=== PATIENT | female | born 1950 | race Caucasian/White ===

== ENCOUNTER 2016-07-16 10:52 | Emergency (ER) | payer MEDICARE, BC ==
--- NOTE | 2016-07-16 11:09 | Emergency Department Record ---
History of Present Illness - General Chief Complaint: Back Pain/Injury Stated Complaint: SCIATIC PAIN Time Seen by Provider: 07/16/16 11:08 Source: Patient Mode of Arrival: Ambulatory Limitations: No limitations - History of Present Illness Initial Comments: The patient is here due to a worsening of her chronic back pain. She has had a long hx of similar problems and did have injections done over a year ago which improved the pain. Now for the last 2 months the pain has returned and is worsening. The pain is in the L buttock area and intermittently radiates down the L leg. She denies any leg weakness or numbness and also denies any bowel or bladder incontinence or retention. The patient has been receiving Lancaster for pain but it is not working. She does have an MRI scheduled tomorrow for the problem. The patient did not take any of her multiple BP medicines today also. MD Complaint: Back pain Onset/Timin -: Month(s) Similar Symptoms Previously: Yes Radiation: Left leg Severity: Severe Severity scale (1-10): 10 Quality: Sharp Consistency: Getting worse Improves With: None Worsens With: None Context: Other Associated Symptoms: Denies other symptoms Treatments Prior to Arrival: Acetaminophen Treatment Prior to Arrival Comment:: Tylenol at 0800 - Related Data Home Medications Medication Instructions Recorded Confirmed Last Taken Clonidine HCl [Catapres] 1 tab PO DAILY PRN 05/27/14 07/16/16 07/16/16 Lisinopril/Hydrochlorothiazide 1 tab PO DAILY 05/27/14 07/16/16 07/16/16 [Lisinopril-Hctz 20-12.5 mg Tab] Ondansetron [Ondansetron Odt] 1 tab PO QID PRN 05/27/14 07/16/16 07/16/16 Propranolol HCl [Propranolol HCl 120 mg PO DAILY 05/27/14 07/16/16 07/16/16 ER] Hydrocodone/Acetaminophen 1 tab PO Q12HR PRN 07/16/16 07/16/16 07/15/16 [Hydrocodon-Acetaminophen 5-325] Previous Rx's Medication Instructions Recorded Naproxen [Naprosyn] 500 mg PO Q12H #30 tab. 07/04/15 Acyclovir 800 mg PO 5XD #34 tablet 09/10/15 Lorazepam [Ativan] 0.5 mg PO TID #14 tablet 11/15/15 Trazodone HCl [Desyrel] 50 mg PO QHS #30 tab 11/19/15 Methylprednisolone [Medrol Dose 4 mg PO DAILY #1 tab.ds.pk 07/16/16 Pack] Allergies Allergy/AdvReac Type Severity Reaction Status Date / Time iodine Allergy Severe SWELLING Verified 07/16/16 10:58 OF THE TONGUE nalbuphine HCl [From Nubain] Allergy Severe SWELLING Verified 07/16/16 10:58 OF THE TONGUE seafood Allergy Severe SWELLING Uncoded 08/30/14 13:47 OF THE TONGUE Travel Screening - Travel/Exposure Within Last 30 Days Have you traveled within the last 30 days?: No - Travel/Exposure Within Last Year Have you traveled outside the [place] in the last year?: No - Additonal Travel Details Have you been exposed to anyone with a communicable illness?: No - Travel Symptoms Symptom Screening: None Review of Systems Constitutional: Denies: Chills, Fever Eyes: Denies: Eye discharge ENT: Denies: Congestion Respiratory: Denies: Cough, Dyspnea Past Medical History - SOCIAL HISTORY Smoking Status: Never smoker Alcohol Use: None Drug Use: None - RESPIRATORY Hx Respiratory Disorders: Yes Hx Pneumonia: Yes (long time ago) - CARDIOVASCULAR Hx Cardio Disorders: Yes Hx Cardiac Cath: Yes Hx Chest Pain: Yes (anxiety related Dr said/none since 1 yr ago) Hx Deep Vein Thrombosis: Yes (bilaterl legs.) Hx Hypertension: Yes (controlled) - NEURO Hx Neuro Disorders: Yes Hx of Migraines: Yes (it has cut back quite a bit) Comment:: "sees double" at times. Lasts 30 min. Once or twice per month. - GI Hx GI Disorders: No - Hx Genitourinary Disorders: Yes Hx UTI: Yes (none recently) - ENDOCRINE Hx Endocrine Disorders: No Hx Diabetes: No Hx Thyroid Disease: No - MUSCULOSKELETAL Hx Musculoskeletal Disorders: Yes Hx Arthritis: Yes (RA) Comment:: left hip pain worse than right RIGHT KNEE PAIN - PSYCH Hx Psych Problems: Yes Hx Anxiety: Yes Hx Depression: Yes - HEMATOLOGY/ONCOLOGY Hx Hematology/Oncology Disorders: Yes Hx Blood Transfusions: Yes Hx Blood Transfusion Reaction: No Family Medical History Any Significant Family History?: Yes Hx Cancer: Mother, Children Hx Heart Disease: Father Physical Exam - General General Appearance: Alert, Oriented x3, Cooperative, No acute distress - Head Head exam: Atraumatic, Normocephalic, Normal inspection - Eye Eye exam: Normal appearance, PERRL - Neck Neck exam: Normal inspection, Full ROM. negative: Tenderness - Respiratory Respiratory exam: Normal lung sounds bilaterally. negative: Respiratory distress - Cardiovascular Cardiovascular Exam: Regular rate, Normal rhythm, Normal heart sounds - GI/Abdominal GI/Abdominal exam: Soft, Normal bowel sounds. negative: Tenderness - Extremities Extremities exam: Normal inspection, Full ROM, Normal capillary refill. negative: Tenderness - Back Back exam: Reports: Normal inspection, Muscle spasm (There does seem to be some muscle spasm to the L buttock and low lumbar paraspinal area.), Tenderness ( There is tenderness to palpation over the L SI area. ), Other (Neg SLR bilaterally.). Denies: Vertebral tenderness - Neurological Neurological exam: Alert, Normal gait, Oriented X3, Reflexes normal. negative: Abnormal gait, Altered, Motor sensory deficit Course Vital Signs 07/16/16 11:00 Temperature 97.4 F L Pulse Rate 120 H Respiratory 20 Rate Blood Pressure 192/111 Pulse Ox 97 - Reevaluation(s) Reevaluation #1: The patient is doing better at this time. Her BP is elevated but she has not taken any of her multiple medicines today. I did discuss the case with Dr. Cortés 's office and they would like her on a Medrol dose pack and they will see her early next week for recheck. 07/16/16 13:09 Disposition Disposition: Discharge Clinical Impression: Chronic back pain Qualifiers: Back pain location: low back pain Back pain laterality: left Sciatica presence : unspecified whether sciatica present Qualified Code(s): M54.5 - Low back pain Disposition: Home, Self-Care Condition: (1) Good Instructions: Chronic Pain (ED) Additional Instructions: Please continue your regular pain medicines and please take your BP medicines at home. Start the Medrol dose pack as directed and you may increase your Lancaster to one pill 4 times a day for [address] Cortés as planned. Prescriptions: Methylprednisolone [Medrol Dose Pack] 4 mg PO DAILY #1 tab.ds.pk Forms: Patient Portal Access Time of Disposition: 13:09
[2016-07-16] MEDS: ORPHENADRINE CITRATE 60MG/2ML VIAL IM ONE (11:25)
[2016-07-16] MEDS: METHYLPREDNISOLONE SOD 40MG/VIAL IM ONE (13:01)
== END 2016-07-16 13:14 | disposition home or self-care (01) ==
LOC: ER 10:52
DX: G89.29 Other chronic pain (principal); M54.5 Low back pain; I10 Essential (primary) hypertension
CPT/HCPCS: 96372; 99283; 99284; J2360; J2920

== ENCOUNTER 2016-11-04 20:19 | Emergency (ER) | payer MEDICARE, BC ==
--- NOTE | 2016-11-04 21:21 | Emergency Department Record ---
History of Present Illness - General Chief complaint: Lower Extremity Pain Stated complaint: LEFT LEG PAIN Time Seen by Provider: 11/04/16 20:52 Source: Patient Mode of Arrival: Ambulatory Limitations: No limitations - History of Present Illness Initial comments: The patient is here due to L lower back pain that intermittently radiates down the L leg and to the thigh off and on for 3 days. She denies any leg numbness, tingling, or weakness and also denies any bowel or bladder incontinence. She has had similar issues for the last 6 months off and on. There has been no trauma, injury or fevers. The patient also denies any AP, dysuria, vomiting, or diarrhea. The patient did drive herself to the ER. MD Complaint: Other Onset/Timin -: Days(s) Location: Left, Thigh History of Same: Yes Radiation: Distal Severity scale (1-10): 9 Quality: Sharp Consistency: Intermittent Improves with: Nothing Worsens with: Exertion, Walking, Weight bearing Associated Symptoms: Denies other symptoms - Related Data Home Medications Medication Instructions Recorded Confirmed Last Taken Clonidine HCl [Catapres] 1 tab PO DAILY PRN 05/27/14 11/04/16 07/16/16 Lisinopril/Hydrochlorothiazide 1 tab PO DAILY 05/27/14 11/04/16 07/16/16 [Lisinopril-Hctz 20-12.5 mg Tab] Ondansetron [Ondansetron Odt] 1 tab PO QID PRN 05/27/14 11/04/16 07/16/16 Propranolol HCl [Propranolol HCl 120 mg PO DAILY 05/27/14 11/04/16 07/16/16 ER] Previous Rx's Medication Instructions Recorded Naproxen [Naprosyn] 500 mg PO Q12H #30 tab. 07/04/15 Lorazepam [Ativan] 0.5 mg PO TID #14 tablet 11/15/15 Trazodone HCl [Desyrel] 50 mg PO QHS #30 tab 11/19/15 Cyclobenzaprine HCl [Flexeril] 10 mg PO TID PRN #20 tablet 11/04/16 Allergies Allergy/AdvReac Type Severity Reaction Status Date / Time iodine Allergy Severe SWELLING Verified 07/16/16 10:58 OF THE TONGUE nalbuphine HCl [From Nubain] Allergy Severe SWELLING Verified 07/16/16 10:58 OF THE TONGUE seafood Allergy Severe SWELLING Uncoded 08/30/14 13:47 OF THE TONGUE Travel Screening - Travel/Exposure Within Last 30 Days Have you traveled within the last 30 days?: No - Travel Symptoms Symptom Screening: None Review of Systems Constitutional: Denies: Chills, Fever Eyes: Denies: Eye discharge ENT: Denies: Congestion Respiratory: Denies: Cough, Dyspnea Past Medical History - SOCIAL HISTORY Smoking Status: Never smoker - RESPIRATORY Hx Respiratory Disorders: Yes Hx Pneumonia: Yes (long time ago) - CARDIOVASCULAR Hx Cardio Disorders: Yes Hx Cardiac Cath: Yes Hx Chest Pain: Yes (anxiety related Dr said/none since 1 yr ago) Hx Deep Vein Thrombosis: Yes (bilateral legs.) Hx Hypertension: Yes (controlled) - NEURO Hx Neuro Disorders: Yes Hx of Migraines: Yes (it has cut back quite a bit) Comment:: "sees double" at times. Lasts 30 min. Once or twice per month. - GI Hx GI Disorders: No - Hx Genitourinary Disorders: Yes Hx UTI: Yes (none recently) - ENDOCRINE Hx Endocrine Disorders: No Hx Diabetes: No Hx Thyroid Disease: No - MUSCULOSKELETAL Hx Musculoskeletal Disorders: Yes Hx Arthritis: Yes (RA) Comment:: left hip pain worse than right RIGHT KNEE PAIN - PSYCH Hx Psych Problems: Yes Hx Anxiety: Yes Hx Depression: Yes - HEMATOLOGY/ONCOLOGY Hx Hematology/Oncology Disorders: Yes Hx Blood Transfusions: Yes Hx Blood Transfusion Reaction: No Family Medical History Any Significant Family History?: Yes Hx Cancer: Mother, Children Hx Heart Disease: Father Physical Exam - General General Appearance: Alert, Oriented x3, Cooperative, No acute distress - Head Head exam: Atraumatic, Normocephalic, Normal inspection - Eye Eye exam: Normal appearance, PERRL - Neck Neck exam: Normal inspection, Full ROM. negative: Tenderness - Respiratory Respiratory exam: Normal lung sounds bilaterally. negative: Respiratory distress - Cardiovascular Cardiovascular Exam: Regular rate, Normal rhythm, Normal heart sounds - GI/Abdominal GI/Abdominal exam: Soft, Normal bowel sounds. negative: Tenderness - Extremities Extremities exam: Normal inspection, Full ROM, Normal capillary refill, Other ( Neg SLR bilaterally.). negative: Tenderness - Back Back exam: Reports: Normal inspection, Paraspinal tenderness (There is very reproducible pain to palpation over the L lower lumbar paraspinal area. ). Denies: Vertebral tenderness - Neurological Neurological exam: Alert, Normal gait, Oriented X3, Reflexes normal (The achilles and patellar reflexes are 2+ and equal bilaterally.). negative: Abnormal gait, Motor sensory deficit Course Vital Signs 11/04/16 20:29 Temperature 97.7 F Pulse Rate [ 83 Pulse Ox Probe] Respiratory 16 Rate Blood Pressure 140/81 [Left Arm] Pulse Ox 97 - Reevaluation(s) Reevaluation #1: Due to the need for the patient to drive home I am unable to give her any pain medicine or muscle relaxers. I also am unable to give her Toradol due to her Renal Insuffiency. We will place the patient on Flexeril for home along with Tylenol. She is to call her PCP for further pain medicines. 11/04/16 21:48 Medical Decision Making - Lab Data Result diagrams: 11/04/16 21:15 11/04/16 21:15 Disposition Disposition: Discharge Clinical Impression: Chronic low back pain Qualifiers: Back pain laterality: left Sciatica presence: with sciatica Sciatica laterality : sciatica laterality unspecified Qualified Code(s): M54.40 - Lumbago with sciatica, unspecified side; G89.29 - Other chronic pain Disposition: Home, Self-Care Condition: (1) Good Instructions: Chronic Back Pain (ED) Additional Instructions: Please take Tylenol with the Flexeril for pain. Please call your PCP for futher pain medicine. Please also see your PCP due to your renal insuffiency. Please return to the ER for any increased pain, fever, leg numbness, weakness or any bowel or bladder issues. Prescriptions: Cyclobenzaprine HCl [Flexeril] 10 mg PO TID PRN #20 tablet PRN Reason: Pain Forms: Patient Portal Access Time of Disposition: 21:51
[2016-11-04 21:24] LABS: BASO % 0.4 % (0-6); EOS % 2.3 % (0-6); GRAN % 50.7 % (47-80); HEMATOCRIT 40.4 % (35.0-47.0); HEMOGLOBIN 13.1 gm/dl (11.6-16.0); LYMPH % 40.3 % (16-45); MEAN CELL VOLUME 97.6 fl (81-97); MEAN CORPUSCULAR HEMOGLOBIN 31.6 pg (27-33); MEAN CORPUSCULAR HGB CONC 32.4 g/dl (32-36); MEAN PLATELET VOLUME 11.2 fl (7.4-10.4); MONO % 6.3 % (0-9); PLATELET COUNT 269 K/uL (130-400); RED BLOOD COUNT 4.14 M/uL (3.80-5.40); RED CELL DISTRIBUTION WIDTH 14.7 % (11.5-14.5); WHITE BLOOD COUNT W/O DIFF 11.1 K/uL (4.2-12.2)
[2016-11-04 21:34] LABS: ANION GAP 12.5 (7-16); CARBON DIOXIDE 24.5 mmol/L (22-30); CREATININE 1.3 mg/dL (0.52-1.04)
[2016-11-04] MEDS: HYDROCODONE/APAP 5/325MG TABLET PO ONE (21:56)
== END 2016-11-04 22:00 | disposition home or self-care (01) ==
LOC: ER 20:19
DX: G89.29 Other chronic pain (principal); M54.42 Lumbago with sciatica, left side; N28.9 Disorder of kidney and ureter, unspecified; I10 Essential (primary) hypertension
CPT/HCPCS: 80048; 85025; 99283

== ENCOUNTER 2016-11-12 21:24 | Emergency (ER) | payer MEDICARE, BC ==
--- NOTE | 2016-11-12 21:33 | Emergency Department Record ---
History of Present Illness - General Chief complaint: Lower Extremity Pain Stated complaint: BACK/LEG PAIN Time Seen by Provider: 11/12/16 21:32 Mode of Arrival: Ambulatory - History of Present Illness Initial comments: The patient is here due to worsening of her chronic L thigh pain. She has a long hx of similar pain and did have an MRI done of the L thigh 4 months ago that was normal. Today she had her first PT session and now her thigh pain is worse. She does have a narcotic pain medicine that was prescribed by her PCP but has been unable to fill it. There is no reported new back pain, leg numbness , weakness or any bowel or bladder issues. MD Complaint: Extremity pain Onset/Timin -: Hour(s) Location: Left History of Same: Yes Radiation: Distal Severity scale (1-10): >10 Quality: Aching Consistency: Constant, Intermittent Improves with: Nothing Worsens with: Exertion, Walking, Weight bearing Associated Symptoms: Denies other symptoms - Related Data Home Medications Medication Instructions Recorded Confirmed Last Taken Clonidine HCl [Catapres] 1 tab PO DAILY PRN 05/27/14 11/04/16 07/16/16 Lisinopril/Hydrochlorothiazide 1 tab PO DAILY 05/27/14 11/04/16 07/16/16 [Lisinopril-Hctz 20-12.5 mg Tab] Ondansetron [Ondansetron Odt] 1 tab PO QID PRN 05/27/14 11/04/16 07/16/16 Propranolol HCl [Propranolol HCl 120 mg PO DAILY 05/27/14 11/04/16 07/16/16 ER] Previous Rx's Medication Instructions Recorded Naproxen [Naprosyn] 500 mg PO Q12H #30 07/04/15 Lorazepam [Ativan] 0.5 mg PO TID #14 tablet 11/15/15 Trazodone HCl [Desyrel] 50 mg PO QHS #30 tab 11/19/15 Cyclobenzaprine HCl [Flexeril] 10 mg PO TID PRN #20 tablet 11/04/16 Lidocaine Patch [Lidoderm] 1 ea TOP DAILY #7 patch 11/12/16 Allergies Allergy/AdvReac Type Severity Reaction Status Date / Time iodine Allergy Severe SWELLING Verified 07/16/16 10:58 OF THE TONGUE nalbuphine HCl [From Nubain] Allergy Severe SWELLING Verified 07/16/16 10:58 OF THE TONGUE seafood Allergy Severe SWELLING Uncoded 08/30/14 13:47 OF THE TONGUE Travel Screening - Travel/Exposure Within Last 30 Days Have you traveled within the last 30 days?: No Review of Systems Constitutional: Denies: Chills, Fever Eyes: Denies: Eye discharge ENT: Denies: Congestion Respiratory: Denies: Cough, Dyspnea Past Medical History - SOCIAL HISTORY Smoking Status: Never smoker - RESPIRATORY Hx Respiratory Disorders: Yes Hx Pneumonia: Yes (long time ago) - CARDIOVASCULAR Hx Cardio Disorders: Yes Hx Cardiac Cath: Yes Hx Chest Pain: Yes (anxiety related Dr said/none since 1 yr ago) Hx Deep Vein Thrombosis: Yes (bilateral legs.) Hx Hypertension: Yes (controlled) - NEURO Hx Neuro Disorders: Yes Hx of Migraines: Yes (it has cut back quite a bit) Comment:: "sees double" at times. Lasts 30 min. Once or twice per month. - GI Hx GI Disorders: No - Hx Genitourinary Disorders: Yes Hx UTI: Yes (none recently) - ENDOCRINE Hx Endocrine Disorders: No Hx Diabetes: No Hx Thyroid Disease: No - MUSCULOSKELETAL Hx Musculoskeletal Disorders: Yes Hx Arthritis: Yes (RA) Comment:: left hip pain worse than right RIGHT KNEE PAIN - PSYCH Hx Psych Problems: Yes Hx Anxiety: Yes Hx Depression: Yes - HEMATOLOGY/ONCOLOGY Hx Hematology/Oncology Disorders: Yes Hx Blood Transfusions: Yes Hx Blood Transfusion Reaction: No Family Medical History Hx Cancer: Mother, Children Hx Heart Disease: Father Physical Exam - General General Appearance: Alert, Oriented x3, Cooperative, No acute distress - Head Head exam: Atraumatic, Normocephalic, Normal inspection - Eye Eye exam: Normal appearance, PERRL - Neck Neck exam: Normal inspection, Full ROM. negative: Tenderness - Respiratory Respiratory exam: Normal lung sounds bilaterally. negative: Respiratory distress - Cardiovascular Cardiovascular Exam: Regular rate, Normal rhythm, Normal heart sounds - GI/Abdominal GI/Abdominal exam: Soft, Normal bowel sounds. negative: Tenderness - Extremities Extremities exam: Normal inspection (The Left Thigh has no swelling, bruising, erythema, or edema noted.), Full ROM, Normal capillary refill. negative: Calf tenderness, Joint swelling, Pedal edema, Tenderness - Back Back exam: Reports: Normal inspection. Denies: Muscle spasm, Paraspinal tenderness, Vertebral tenderness - Neurological Neurological exam: Alert, Normal gait, Oriented X3. negative: Abnormal gait, Motor sensory deficit Course Vital Signs 11/12/16 21:31 Temperature 97.5 F L Pulse Rate [ 82 Pulse Ox Probe] Respiratory 22 Rate Blood Pressure 127/108 [Left Arm] Pulse Ox 97 - Reevaluation(s) Reevaluation #1: The patient is doing better. She is still having pain but it is improved. She does have a script at home for Narcotics but has been unable to fill it. I explained to her that she may want to just pay for a weeks worth of the medicine and to see her PCP next week for recheck. 11/12/16 22:30 Disposition Disposition: Discharge Clinical Impression: Chronic pain syndrome Disposition: Home, Self-Care Condition: (1) Good Instructions: Chronic Pain (ED) Additional Instructions: Please continue your regular medicines and add the Lidoderm. Please see your PCP for recheck on Tuesday. Return to the ER if worse. Prescriptions: Lidocaine Patch [Lidoderm] 1 ea TOP DAILY #7 patch Forms: Patient Portal Access Time of Disposition: 22:33
[2016-11-12] MEDS ORDERED: ACETAMINOPHEN 325 MG TAB PO ONE (21:37)
[2016-11-12] MEDS ORDERED: ORPHENADRINE CITRATE 60MG/2ML VIAL IM ONE (21:37)
[2016-11-12] MEDS ORDERED: LIDOCAINE 5% PATCH TOP ONE (22:09)
== END 2016-11-12 22:39 | disposition home or self-care (01) ==
LOC: ER 21:24
DX: G89.4 Chronic pain syndrome (principal); M79.652 Pain in left thigh
CPT/HCPCS: 96372; 99283; J2360